=== PATIENT | female | born 1955 | race Caucasian/White ===

== ENCOUNTER 2017-11-13 20:42 | Inpatient (IN) | payer BC ==
[~2017-11-13] VITALS: Ht 154.9 cm; Wt 65.3 kg
[~2017-11-13 20:42] MED LIST: AMLO10TA4 PO; CLON1TAB PO; DIPH1TAB28 PO; DULO60CA45 PO; ESTR0.452 PO; GABA800T2 PO; HYDR-548 PO; LEVO500T2 PO; METH10TA2 PO; Nystatin PO; ONDA8TAB6 PO; PANT40TA4 PO; PROC-11 PO; TIZA6CAP PO; [UNRECOGNIZED DRUG - OTHER] PO
--- NOTE | 2017-11-13 20:45 | NUR ---
TO BED 4 [facility] PARAMEDICS C/O NONRADIATING CP X 1 08/29 WINDER HAND. PER EMS GAVE ASA 162 NITRO 2 SPRAY. PT CRYING, REQUESTING PAIN MEDICINE, NOTED PT BP 69/45. PLACE PT ON CARDIAC MONITORING, CONTINUOUS POX, O2@2L/NC. STARTED SL 20G TO R HAND, BLOOD DRAWN AND SENT TO LAB.
[2017-11-13] MEDS ORDERED: IV NS 0.9% 1,000 ML BAG IV ONE (21:00)
[2017-11-13 21:01] LABS: BASOPHILS # (AUTO) 0.1 /CMM (0.0-0.2); BASOPHILS % (AUTO) 0.7 % (0.0-2.0); EOSINOPHILS # (AUTO) 0.2 /CMM (0.0-0.7); EOSINOPHILS % (AUTO) 2.5 % (0.0-6.0); HEMATOCRIT 39 % (33-45); HEMOGLOBIN 13.6 g/dL (11.5-14.8); LYMPHOCYTES # (AUTO) 1.3 /CMM (0.8-4.8); LYMPHOCYTES % (AUTO) 18.5 % (20.0-44.0); MEAN CORPUSCULAR HEMOGLOBIN 32 PG (26.0-33.0); MEAN CORPUSCULAR HGB CONC 35 g/dl (31.0-36.0); MEAN CORPUSCULAR VOLUME 93 fL (82-100); MONOCYTES # (AUTO) 0.2 /CMM (0.1-1.30); NEUTROPHILS # (AUTO) 5.5 /CMM (1.8-8.9); NEUTROPHILS % (AUTO) 75.3 % (43.0-81.0); PLATELET COUNT (AUTO) 286 /CMM (150-450); RDW COEFFICIENT OF VARIATION 15.4 (11.5-15.0); RED BLOOD CELL COUNT(AUTO) 4.19 MIL/uL (4.0-5.2); WHITE BLOOD COUNT (AUTO) 7.3 K/uL (4.3-11.0)
[2017-11-13 21:21] LABS: CALCIUM, SERUM 9.1 mg/dL (8.5-10.1); CARBON DIOXIDE 24 mmol/L (21-32); CHLORIDE 104 mmol/L (98-107); CREATININE 1.4 mg/dL (0.6-1.3); GLUCOSE 111 mg/dL (74-106); INR 0.94 (0.87-1.13); POTASSIUM 5.2 mmol/L (3.5-5.1); SODIUM SERUM 137 mmol/L (136-145); UREA NITROGEN, BLOOD 23 mg/dL (7-18)
--- NOTE | 2017-11-13 21:27 | NUR ---
PT CAREGIVER AT BEDSIDE.
[2017-11-13 21:29] LABS: TROPONIN I < 0.017 ng/mL (0.00-0.056)
[2017-11-13] MEDS ORDERED: MORPHINE SULFATE INJ 4 MG/ML DISP.SYRIN ONE (22:24)
--- NOTE | 2017-11-13 22:28 | NUR ---
PT MEDICATED BY RN PER ER MD ORDER.
[2017-11-13] MEDS ORDERED: MORPHINE SULFATE INJ 2 MG/ML DISP.SYRIN IV ONE (22:30)
[2017-11-13] MEDS ORDERED: ASPIRIN 325 MG TABLET PO ONE (22:30)
--- NOTE | 2017-11-13 22:34 | NUR ---
CALLED NURSING SUP. FOR TELE BED
--- NOTE | 2017-11-13 22:46 | NUR ---
ER SPOKE TO MAGALI DECKER DNP REGARDING PT ADMISSION.
--- NOTE | 2017-11-13 23:03 | NUR ---
REPORT CALLED TO [facility]. WILL TRANSPORT PT VIA [facility]S PROTOCOL.
--- NOTE | 2017-11-13 23:15 | NUR ---
ORDER MANAGEMENT SPECIALISTEXIT BOOTH AGENT NOTES ADMITTED FROM ER THIS 62 Y.O. FEMALE PER ELADIA WITH CHIEF COMPLAINTS OF CHEST PAIN LABOR ARBITRATOR HEARING OFFICE.ALERT,ORIENTED X3,BREATHING REGULAR,NOT IN ANY FORM OF DISTRESS.SALINE LOCK RIGHT WRIST INTACT AND PATENT.PATIENT CLAIMED ITCHINESS ON PERINEAL AREA.NOTED SLIGHT REDNESS WITH SOME SMALL LESIONS ON GROIN AREA.CLEANSE AND KEPT DRY.PICTURE TAKEN WITH PATIENT CONSENT,ON CHART.AMBULATORY.CALL LIGHT IN REACH,NEEDS ANTICIPATED.
[2017-11-13] MEDS ORDERED: PROCHLORPERAZINE MALEATE 10 MG TABLET PO PRN (23:30)
[2017-11-13] MEDS ORDERED: LEVOFLOXACIN (500MG) 500 MG TABLET PO SCH (23:30)
[2017-11-13] MEDS ORDERED: DIPHENOXYLATE HCL/ATROP SULF 1 UDTAB TABLET PO PRN (23:30)
[2017-11-13] MEDS ORDERED: HYDROCODONE/APAP 10/325MG 1 EA TABLET PO PRN (23:30)
[2017-11-14] VITALS (10 sets, daily range): BP systolic 86–146; BP diastolic 48–82
[2017-11-14] MEDS ORDERED: ACETAMINOPHEN 325 MG TABLET PO PRN
[2017-11-14] MEDS ORDERED: LEVOFLOXACIN (500MG) 500 MG TABLET ONE (00:02)
[2017-11-14] MEDS ORDERED: ENOXAPARIN SODIUM 40 MG/0.4 ML DISP.SYRIN SQ ONE (00:02)
[2017-11-14] MEDS: IV NS 0.9% 1,000 ML IV PRN ×2 (00:09→12:57)
--- NOTE | 2017-11-14 00:09 | NUR ---
NET COORDINATOR NOTES STARTED ON NS 1LITER AT 75ML/HR RATE,INFUSING VIA IV PUMP ON THE RIGHT WRIST SALINE LOCK.
--- NOTE | 2017-11-14 00:20 | NUR ---
CONVENTION PLANNER NOTES STARTED ON LEVAQUIN 500MG PO ORDERED.
--- NOTE | 2017-11-14 00:21 | NUR ---
ANTENNA RIGGER NOTES STARTED ON LOVENOX 40MG SQ,GIVEN ON LEFT LOWER ABDOMEN ORDERED FOR DVT PROHYLAXIS
[2017-11-14] MEDS ORDERED: HYDROCODONE/APAP 10/325MG 1 EA TABLET ONE (01:42)
--- NOTE | 2017-11-14 01:44 | NUR ---
RESERVE OFFICER NOTES PAIN MANAGEMENT C/O LEFT CHEST PAIN 7/10 ON PAIN SCALE.MEDICATED WITH NORCO 10/325MG,1 TAB PO ORDERED
--- NOTE | 2017-11-14 05:00 | NUR ---
SPAR MACHINE OPERATOR HELPER NOTES STILL IN PAIN,910 0N PAIN SCALE,MAGALI DECKER NOTIFIED IF I CAN MEDICATE NOW WITH FIRST DOSE METHADONE SCHEDULED AT 0900 AND PER PATIENT REQUEST,AWAITING TO REPLY BACK
[2017-11-14] MEDS ORDERED: METHADONE HCL 10 MG TABLET ONE (05:09)
[2017-11-14] MEDS ORDERED: AMLODIPINE BESYLATE 10 MG TABLET ONE (05:09)
--- NOTE | 2017-11-14 05:10 | NUR ---
ESCALATOR SERVICE MECHANIC NOTES MAGALI DECKER ACNP REPLIED WITH NEW ORDER TO GIVE MORPHINE 4MG X ONE DOSE AND GIVE HER METHADONE 10MG PO WELL
[2017-11-14] MEDS: AMLODIPINE BESYLATE 10 MG TABLET PO SCH (05:12)
--- NOTE | 2017-11-14 05:13 | NUR ---
PROFESSOR OF FORESTRY NOTE PAIN MANAGEMENT MORPHINE 4MG IVP GIVEN ORDERED.ALSO METHADONE 10MG PO GIVEN FIRST DOSE
[2017-11-14] MEDS ORDERED: TIZANIDINE HCL 4 MG TABLET ONE (05:27)
[2017-11-14] MEDS ORDERED: MORPHINE SULFATE INJ 4 MG/ML DISP.SYRIN ONE (05:27)
[2017-11-14] MEDS: TIZANIDINE HCL 4 MG TABLET PO SCH ×3 (05:28→20:50)
[2017-11-14] MEDS ORDERED: MORPHINE SULFATE INJ 4 MG/ML DISP.SYRIN IV ONE (05:30)
--- NOTE | 2017-11-14 06:44 | NUR ---
NEUROSURGERY RESEARCH DIRECTOR NOTES SR 72 ON TELE MONITOR.CLAIMED SHE FEELS BETTER,PAIN SCALE DECREASED TO 5/10.IVF INFUSING.SITE PATENT ON RIGHT HAND.IN NO ACUTE DISTRESS.WILL ENDORSE TO DAY NURSE FOR IGLESIA.
--- NOTE | 2017-11-14 07:00 | NUR ---
RN NOTES: PATIENT RESTING IN BED. NONLABORED BREATHING NOTED ON ROOM AIR. PATIENT AOX3, NO SIGNS OF DISTRESS, PATIENT NOTED WITH SLURRED SPEECH WHEN TALKING, NO FOCAL IMPAIRMENT NOTED. PATIENT DENIES CHEST PAIN AT THE MOMENT. BED IN LOWEST LOCKED POSITION. CALL LIGHT WITHIN REACH. WILL CONTINUE TO MONITOR
[2017-11-14] MEDS ORDERED: ENOXAPARIN SODIUM 40 MG/0.4 ML DISP.SYRIN SQ SCH ×2 (07:52)
[2017-11-14] MEDS ORDERED: METHADONE HCL 10 MG TABLET PO SCH (09:00)
[2017-11-14] MEDS ORDERED: ESTROGENS,CONJUGATED (0.3 mg) 0.3 MG TABLET PO SCH (09:00)
[2017-11-14] MEDS: ASPIRIN EC 81 MG TABLET.DR PO SCH (10:09)
[2017-11-14] MEDS: PANTOPRAZOLE 40 MG TABLET.DR PO SCH ×2 (10:10→16:29)
[2017-11-14] MEDS: GABAPENTIN 400 MG CAPSULE PO SCH ×4 (10:10→21:48)
[2017-11-14] MEDS: NYSTATIN (PYXIS) 500,000 UNIT/5 ML ORAL.SUSP PO SCH ×3 (10:11→16:30)
[2017-11-14] MEDS: clonazePAM 1 MG TABLET PO SCH ×4 (10:30→20:49)
--- NOTE | 2017-11-14 11:03 | NUR ---
RN NOTES: PATIENT REFUSED KLONOPIN. BP REASSESSED AND NOTED TO BE 84/48. DISCUSSED WITH PATIENT BENEFITS AND RISKS, NO FACIAL GRIMACES NOTED, FACIAL EXPRESSIONS INDICATE CALMNESS, PATIENT DENIES DIZZINESS, NONLABORED BREATHING NOTED
--- NOTE | 2017-11-14 11:27 | NUR ---
RN NOTES ATTEMPTED ADFMINISTRATION OF ZOVIRAX, OINTMENT EARLIER X2,PATIENT REFUSING,GETTING COMBATIVE, TRYING TO PULL TUBES. PATIENT NOW RESTING IN BED, NO SIGNS OF DISTRESS, NONLABORED BREATHING ON ROOM AIR, FACIAL GRIMACES INDICATE CALMNESS
[2017-11-14] MEDS: DULOXETINE HCL 30 MG CAPSULE.DR PO SCH (11:37)
--- NOTE | 2017-11-14 14:10 | NUR ---
RN NOTES: PATIENT REFUSING GABAPENTIN, STATING THAT HER PAIN HAS DECREASED. BP ASSESSED AND NOTED TO BE 86/48, REASSESSED AGAIN AND NOTED TO BE 90/50 AFTER TRENDELENBURG . PATIENT AND CAREGIVER STATING THAT THIS BP READING IS NORMAL FOR HER AT HOME. PATIENT DENIES DIZZINESS, NO SOB ON ROOM AIR. ON IV HYDRATION PER ORDERS
--- NOTE | 2017-11-14 14:28 | NUR ---
RN NOTES: PATIENT NOTED WITH SLIGHT LEFT EYE DROOPINESS, PATIENT PERRLA, DENIES VISUAL CHANGES, NO FOCAL IMPAIRMENT, SLURRED SPEECH IS STILL NOTED. DR CHAMBERS AWARE
--- NOTE | 2017-11-14 18:40 | NUR ---
RN NOTES: PATIENT RESTING IN BED. NONLABORED BREATHING NOTED ON ROOM AIR. PATIENT AOX3, NO SIGNS OF DISTRESS, PATIENT NOTED WITH SLURRED SPEECH WHEN TALKING, NO FOCAL IMPAIRMENT NOTED. PATIENT DENIES CHEST PAIN AT THE MOMENT PATIENT SINUS ON TELE MONITOR. PATIENT BED IN LOWEST LOCKED POSITION. CALL LIGHT WITHIN REACH. WILL ENDORSE TO NEXT SHIFT
--- NOTE | 2017-11-14 18:41 | NUR ---
Met with patient and caregiver Nikky at the bedside. Patient is alert and pleasant. She lives alone in a 2 story home in [place], she has caregiver 24hrs caregiver. Patient is ambulatory , requires assistance with adl's. Has no DME , she is currently on home PT private pay with PT Jonathan [phone]. Nikky (caregiver) [phone] will provide ride home once patient is discharge. Addendum: 11/14/17 at 1842 by OLGA GARDINER RN Amended: Links added.
--- NOTE | 2017-11-14 18:41 | NUR ---
Met with patient and caregiver Nikky at the bedside. Patient is alert and pleasant. She lives alone in a 2 story home in [place],she has caregiver 24hrs caregiver. Patient is ambulatory , requires assistance with adl's. Has no DME , she is currently on home PT private pay with PT Jonathan [phone]. Nikky (caregiver) [phone] will provide ride home once patient is discharge. Addendum: 11/14/17 at 1842 by OLGA GARDINER RN Amended: Links added.
--- NOTE | 2017-11-14 19:25 | NUR ---
RN NOTES: PATIENT RESTING IN BED. NONLABORED BREATHING NOTED ON ROOM AIR. PATIENT AOX3, NO SIGNS OF DISTRESS, PATIENT NOTED WITH SLURRED SPEECH WHEN TALKING, NO FOCAL IMPAIRMENT NOTED. PATIENT DENIES CHEST PAIN AT THE MOMENT. BED IN LOWEST LOCKED POSITION. CALL LIGHT WITHIN REACH. ENDORSED TO NEXT SHIFT
--- NOTE | 2017-11-14 19:30 | NUR ---
PATROL MOTHER NOTES RECEIVED ON BED A/O X3-4,BREATHING REGULAR,NOT IN ANY FORM OF DISTRESS.PRESENT IVF INFUSING WELL ON RIGHT WRIST,SITE PATENT.INSTRUCTED NPO POST [place] FOR STRESS TEST TOMORROW.SR 96 ON TELE MONITOR.VISITOR AT BEDSIDE.CALL LIGHT IN REACH,NEEDS ANTICIPATED.
[2017-11-14] MEDS: METHADONE HCL 10 MG TABLET PO SCH (21:47)
--- NOTE | 2017-11-14 21:47 | NUR ---
GEAR GENERATOR SET UP OPERATOR NOTES BP 147/82,PULSE 87,DUE METHADONE 10MG PO AND NEURONTIN 800MG PO ADMINISTERED,PAIN SCALE OF 8-9/10 GENERALIZED PAIN.
[2017-11-14 23:06] LABS: BASOPHILS % (AUTO) 0.7 % (0.0-2.0); EOSINOPHILS # (AUTO) 0.3 /CMM (0.0-0.7); EOSINOPHILS % (AUTO) 5.2 % (0.0-6.0); HEMATOCRIT 39 % (33-45); HEMOGLOBIN 13.2 g/dL (11.5-14.8); LYMPHOCYTES # (AUTO) 1.8 /CMM (0.8-4.8); LYMPHOCYTES % (AUTO) 35.5 % (20.0-44.0); MEAN CORPUSCULAR HEMOGLOBIN 32 PG (26.0-33.0); MEAN CORPUSCULAR HGB CONC 34 g/dl (31.0-36.0); MEAN CORPUSCULAR VOLUME 95 fL (82-100); MONOCYTES # (AUTO) 0.3 /CMM (0.1-1.30); MONOCYTES % (AUTO) 6.7 % (2.0-12.0); NEUTROPHILS # (AUTO) 2.7 /CMM (1.8-8.9); NEUTROPHILS % (AUTO) 51.9 % (43.0-81.0); PLATELET COUNT (AUTO) 220 /CMM (150-450); RDW COEFFICIENT OF VARIATION 16.1 (11.5-15.0); RED BLOOD CELL COUNT(AUTO) 4.08 MIL/uL (4.0-5.2); WHITE BLOOD COUNT (AUTO) 5.2 K/uL (4.3-11.0)
[2017-11-14 23:25] LABS: ALBUMIN 3.5 g/dL (3.4-5.0); BILIRUBIN,TOTAL 0.3 mg/dL (0.2-1.0); CALCIUM, SERUM 8.8 mg/dL (8.5-10.1); CREATININE 1.1 mg/dL (0.6-1.3); MAGNESIUM 1.8 mg/dL (1.8-2.4); PHOSPHORUS 3.6 mg/dL (2.5-4.9); POTASSIUM 4.3 mmol/L (3.5-5.1); TOTAL PROTEIN, SERUM 6.9 g/dL (6.4-8.2)
[2017-11-14] MEDS ORDERED: LEVOFLOXACIN (500MG) 500 MG TABLET PO ONE (23:30)
[2017-11-15] VITALS: BP 146/77
--- NOTE | 2017-11-15 02:00 | NUR ---
PROBATION AND PATROL AGENT NOTES NO SIGNIFICANT CHANGE IN STATUS.KEPT NPO FOR STRESS TEST TODAY BY DR PERALES.IVF INFUSING,SITE REMAINS PATENT RIGHT HAND.IN NO ACUTE DISTRESS.WILL ENDORSE TO DAY NURSE FOR IGLESIA.
[2017-11-15 04:00] VITALS: BP 176/75
[2017-11-15] MEDS: TIZANIDINE HCL 4 MG TABLET PO SCH ×2 (05:00→13:35)
[2017-11-15] MEDS: IV NS 0.9% 1,000 ML IV PRN (05:32)
--- NOTE | 2017-11-15 07:25 | NUR ---
RN NOTES: PATIENT RESTING IN BED. NONLABORED BREATHING NOTED ON ROOM AIR. NO SOB NOTED. IV SITE ON RIGHT HAND PATENT AND INTACT. BED IN LOWEST LOCKED POSITION. CALL LIGHT WITHIN REACH. PATIENT SINUS ON TELE.PATIENT STATES THAT SHE HAS AN 8/10 CHRONIC PAIN IN HER LOWER BACK AND REQUESTS WARM PACKS. PATIENT GIVEN WARM PACKS. CURRENTLY NPO FOR STRESS TEST. WILL CONTINUE TO MONITOR
--- NOTE | 2017-11-15 07:25 | NUR ---
RN NOTES: PATIENT RESTING IN BED. NONLABORED BREATHING NOTED ON ROOM AIR. NO SOB NOTED. IV SITE ON RIGHT HAND PATENT AND INTACT. BED IN LOWEST LOCKED POSITION. CALL LIGHT WITHIN REACH. PATIENT STATES THAT SHE HAS AN 8/10 CHRONIC PAIN IN HER LOWER BACK AND REQUESTS WARM PACKS. PATIENT GIVEN WARM PACKS. CURRENTLY NPO FOR STRESS TEST. WILL CONTINUE TO MONITOR
[2017-11-15 07:39] LABS: BASOPHILS % (AUTO) 0.7 % (0.0-2.0); EOSINOPHILS # (AUTO) 0.3 /CMM (0.0-0.7); EOSINOPHILS % (AUTO) 5.6 % (0.0-6.0); HEMATOCRIT 40 % (33-45); HEMOGLOBIN 13.3 g/dL (11.5-14.8); LYMPHOCYTES % (AUTO) 38.8 % (20.0-44.0); MEAN CORPUSCULAR HEMOGLOBIN 32 PG (26.0-33.0); MEAN CORPUSCULAR HGB CONC 34 g/dl (31.0-36.0); MEAN CORPUSCULAR VOLUME 95 fL (82-100); MONOCYTES # (AUTO) 0.3 /CMM (0.1-1.30); MONOCYTES % (AUTO) 5.3 % (2.0-12.0); NEUTROPHILS # (AUTO) 2.5 /CMM (1.8-8.9); NEUTROPHILS % (AUTO) 49.6 % (43.0-81.0); PLATELET COUNT (AUTO) 247 /CMM (150-450); RDW COEFFICIENT OF VARIATION 16.6 (11.5-15.0); RED BLOOD CELL COUNT(AUTO) 4.17 MIL/uL (4.0-5.2); WHITE BLOOD COUNT (AUTO) 5.1 K/uL (4.3-11.0)
[2017-11-15 07:56] LABS: TROPONIN I < 0.017 ng/mL (0.00-0.056)
[2017-11-15 08:00] VITALS: BP 169/89
[2017-11-15 08:02] LABS: ALANINE AMINOTRANSFERASE 16 U/L (12-78); ALBUMIN 3.5 g/dL (3.4-5.0); ALKALINE PHOSPHATASE 78 U/L (46-116); ASPARTATE AMINOTRANSFERASE 9 U/L (15-37); BILIRUBIN,TOTAL 0.2 mg/dL (0.2-1.0); CALCIUM, SERUM 9.2 mg/dL (8.5-10.1); CARBON DIOXIDE 29 mmol/L (21-32); CHLORIDE 107 mmol/L (98-107); CREATININE 1.1 mg/dL (0.6-1.3); GLUCOSE 80 mg/dL (74-106); MAGNESIUM 1.6 mg/dL (1.8-2.4); PHOSPHORUS 3.6 mg/dL (2.5-4.9); POTASSIUM 4.3 mmol/L (3.5-5.1); SODIUM SERUM 144 mmol/L (136-145); TOTAL PROTEIN, SERUM 7.1 g/dL (6.4-8.2); UREA NITROGEN, BLOOD 17 mg/dL (7-18)
[2017-11-15] MEDS ORDERED: REGADENOSON 0.4 MG/5 ML DISP.SYRIN IVP ONE (09:00)
[2017-11-15] MEDS ORDERED: ATORVASTATIN 40 MG TABLET PO SCH (09:00)
[2017-11-15] MEDS ORDERED: ESTROGENS,CONJUGATED (0.3 mg) 0.3 MG TABLET PO SCH (09:00)
[2017-11-15 09:15] VITALS: BP 163/99
[2017-11-15] MEDS: METHADONE HCL 10 MG TABLET PO SCH ×2 (09:22→12:44)
[2017-11-15] MEDS: GABAPENTIN 400 MG CAPSULE PO SCH ×2 (09:22→12:43)
[2017-11-15] MEDS: clonazePAM 1 MG TABLET PO SCH ×2 (09:23→12:44)
[2017-11-15] MEDS: ASPIRIN EC 81 MG TABLET.DR PO SCH (09:23)
[2017-11-15] MEDS: PANTOPRAZOLE 40 MG TABLET.DR PO SCH (09:23)
[2017-11-15] MEDS: NYSTATIN (PYXIS) 500,000 UNIT/5 ML ORAL.SUSP PO SCH ×2 (09:25→12:46)
--- NOTE | 2017-11-15 09:45 | NUR ---
RN NOTES: PATIENT CAME BACK FROM STRESS TEST. NONLABORED BREATHING ON ROOM AIR. PATIENT ABLE DENIES SOB. CURRENTLY EATING BREAKFAST
[2017-11-15 10:40] VITALS: BP 142/86
[2017-11-15] MEDS: DULOXETINE HCL 30 MG CAPSULE.DR PO SCH (10:40)
[2017-11-15] MEDS: AMLODIPINE BESYLATE 10 MG TABLET PO SCH (12:00)
[2017-11-15] MEDS: Magnesium 1GM/D5W 100ML PREMIX 100 ML IV SCH ×2 (12:48→14:26)
--- NOTE | 2017-11-15 13:28 | NUR ---
RN NOTES: PATIENT REFUSED BLOOD PERSSURE MEDICINE, AMLODIPINE. PATIENT STATES THAT SHE DOES NOT WANT HER BLOOD PRESSURE TO DROP. BENEFITS AND RISKS EXPLAINED AT LENGTH MULTIPLE TIMES. PATIENT STILL REFUSING
[2017-11-15 16:05] VITALS: BP_SYST 120; BP_SYST 169; BP_DIAS 70; BP_DIAS 89
--- NOTE | 2017-11-15 17:00 | NUR ---
RN NOTES: PATIENT DISCHARGED HOME PER MD ORDERS. PATIENT STABLE. NONLABORED BREATHING NOTED ON ROOM AIR. PATIENT AMBULATING WITHOUT ANY IMPAIRMENT. PATIENT DENIES VISUAL DIFFICULTIES, DENIES HEADACHES. DENIES PAIN BEFORE DISCHARGE. IV LINE REMOVED. DISCUSSED WITH PATIENT AT LENGTH EXISTCARE INSTRUCTIONS, MEDICATIONS, WELL DIET AND WHEN TO CALL 911. PATIENT VERBALIZED UNDERSTANDING, CAREGIVER ALSO EDUCATED. PATIENT REFUSED VACCINES, SKIN PICTURES, BENEFITS AND RISKS EXPLAINED AT LENGTH, PATIENT STILL REFUSED. MAGNESIUM REPLACED PRIOR TO DISCHARGE, ALL VALUABLES RETURNED TO PATIENT, PATIENT LEFT WITH CAREGIVER JORGE VIA PRIVATE CAR
[2017-11-15] MEDS ORDERED: LEVOFLOXACIN (250MG) 250 MG TABLET PO SCH (21:00)
[2017-11-16] MEDS ORDERED: LEVOFLOXACIN 750 MG /D5W 150ML 150 ML IV ONE (17:59)
[2017-11-16] MEDS ORDERED: GABA-534 PO (18:09)
[2017-11-16] MEDS ORDERED: ONDA8TAB9 PO (18:09)
[2017-11-16] MEDS ORDERED: TIZA4TAB4 PO (18:09)
[2017-11-16] MEDS ORDERED: ERGO500014 PO (18:09)
[2017-11-16] MEDS ORDERED: PREG150C PO (18:09)
[2017-11-16] MEDS ORDERED: DOXE6TAB3 PO (18:09)
[2017-11-16] MEDS ORDERED: LETR2.5T PO (18:09)
[2017-11-16] MEDS ORDERED: CYCL15CA PO (18:09)
[2017-11-16] MEDS ORDERED: TRAM50TA2 PO (18:09)
[2017-11-16] MEDS ORDERED: FLUT16SP16 NS (18:09)
[2017-11-16] MEDS ORDERED: METH-406 PO (18:09)
[2017-11-16] MEDS ORDERED: MELO5CAP PO (18:09)
[2017-11-16] MEDS ORDERED: TRAZ-144 PO (18:09)
[2017-11-18] MEDS ORDERED: AMLO5TAB2 PO (13:44)
== END 2017-11-15 17:01 | disposition home or self-care (01) | DRG 313 ==
LOC: ER 20:44 → TELE 23:06 → MED 11-15 08:12
PROVIDERS: ADMIT Nurse Practitioner Acute Care; ATTEND Nurse Practitioner Acute Care
DX: R07.89 Other chest pain (principal); N17.0 Acute kidney failure with tubular necrosis; F11.20 Opioid dependence, uncomplicated; E87.5 Hyperkalemia; J44.9 Chronic obstructive pulmonary disease, unspecified; I10 Essential (primary) hypertension; Z88.0 Allergy status to penicillin; Z79.899 Other long term (current) drug therapy; Z85.3 Personal history of malignant neoplasm of breast; M19.90 Unspecified osteoarthritis, unspecified site; G89.4 Chronic pain syndrome; F32.9 Major depressive disorder, single episode, unspecified; I70.0 Atherosclerosis of aorta
CPT/HCPCS: 36415; 71045-TC; 80048-TC; 80053-TC; 80061-TC; 83735-TC; 84100-TC; 84484-TC; 85025-TC; 85730-TC; 87081-TC; 93307-TC; A4606; A9502; J1650; J1956; J2270; J2785; J3475; J7030; J7040; J7050; Q0164; Z7610

== ENCOUNTER 2017-11-16 14:56 | Inpatient (IN) | payer BC ==
[~2017-11-16] VITALS: Ht 165.1 cm; Wt 66.2 kg
[~2017-11-16 14:56] MED LIST changes: -LEVO500T2 PO
[2017-11-16 15:20] LABS: BASOPHILS # (AUTO) 0.1 /CMM (0.0-0.2); EOSINOPHILS # (AUTO) 0.3 /CMM (0.0-0.7); EOSINOPHILS % (AUTO) 2.3 % (0.0-6.0); HEMATOCRIT 33 % (33-45); HEMOGLOBIN 11.4 g/dL (11.5-14.8); LYMPHOCYTES # (AUTO) 1.9 /CMM (0.8-4.8); LYMPHOCYTES % (AUTO) 15.4 % (20.0-44.0); MEAN CORPUSCULAR HEMOGLOBIN 33 PG (26.0-33.0); MEAN CORPUSCULAR HGB CONC 35 g/dl (31.0-36.0); MEAN CORPUSCULAR VOLUME 93 fL (82-100); MONOCYTES # (AUTO) 0.5 /CMM (0.1-1.30); MONOCYTES % (AUTO) 3.8 % (2.0-12.0); NEUTROPHILS # (AUTO) 9.3 /CMM (1.8-8.9); NEUTROPHILS % (AUTO) 77.5 % (43.0-81.0); PLATELET COUNT (AUTO) 228 /CMM (150-450); RDW COEFFICIENT OF VARIATION 15.1 (11.5-15.0); RED BLOOD CELL COUNT(AUTO) 3.51 MIL/uL (4.0-5.2); WHITE BLOOD COUNT (AUTO) 12.1 K/uL (4.3-11.0)
[2017-11-16] MEDS ORDERED: NALOXONE HCL 0.4 MG/ML AMPUL ONE (15:23)
[2017-11-16 15:30] LABS: CALCIUM, SERUM 8.4 mg/dL (8.5-10.1); CARBON DIOXIDE 28 mmol/L (21-32); CHLORIDE 104 mmol/L (98-107); CREATININE 1.4 mg/dL (0.6-1.3); GLUCOSE 116 mg/dL (74-106); POTASSIUM 4.1 mmol/L (3.5-5.1); SODIUM SERUM 136 mmol/L (136-145); UREA NITROGEN, BLOOD 21 mg/dL (7-18)
[2017-11-16] MEDS ORDERED: IV NS 0.9% 500 ML BAG IV ONE (15:30)
[2017-11-16] MEDS ORDERED: NALOXONE HCL 0.4 MG/ML AMPUL IV ONE ×2 (15:30→17:00)
[2017-11-16 15:31] LABS: ALCOHOL, BLOOD < 3 mg/dL (0-0)
[2017-11-16] MEDS ORDERED: NALOXONE PREFILLED SYRINGE 2 MG/2 ML SYRINGE ONE (16:35)
[2017-11-16] MEDS ORDERED: IV NS 0.9% 1,000 ML BAG IV ONE (17:00)
[2017-11-16] MEDS ORDERED: LEVOFLOXACIN 750 MG /D5W 150ML PIGGYBACK IV ONE (18:00)
[2017-11-16] MEDS ORDERED: TIZA4TAB4 PO (18:09)
[2017-11-16] MEDS ORDERED: FLUT16SP16 NS (18:09)
[2017-11-16] MEDS ORDERED: METH-406 PO (18:09)
[2017-11-16] MEDS ORDERED: CYCL15CA PO (18:09)
[2017-11-16] MEDS ORDERED: TRAZ-144 PO (18:09)
[2017-11-16] MEDS ORDERED: DOXE6TAB3 PO (18:09)
[2017-11-16] MEDS ORDERED: LETR2.5T PO (18:09)
[2017-11-16] MEDS ORDERED: MELO5CAP PO (18:09)
[2017-11-16] MEDS ORDERED: PREG150C PO (18:09)
[2017-11-16] MEDS ORDERED: GABA-534 PO (18:09)
[2017-11-16] MEDS ORDERED: ONDA8TAB9 PO (18:09)
[2017-11-16] MEDS ORDERED: TRAM50TA2 PO (18:09)
[2017-11-16] MEDS ORDERED: ERGO500014 PO (18:09)
[2017-11-16] MEDS ORDERED: Z GUARD REMEDY 2 OZ OINT TP PRN (18:30)
[2017-11-16] MEDS ORDERED: FLUTICASONE PROPIONATE 16 GM BOTTLE NS PRN (18:30)
[2017-11-16] MEDS ORDERED: MAG HYDROX/AL HYDROX/SIMETH 30 ML UDC PO PRN (18:30)
[2017-11-16] MEDS ORDERED: ZOLPIDEM TARTRATE 5 MG TABLET PO PRN (18:30)
[2017-11-16] MEDS ORDERED: TRAMADOL HCL 50 MG TABLET PO PRN (18:30)
[2017-11-16] MEDS ORDERED: MAGNESIUM HYDROXIDE 30 ML UDC PO PRN (18:30)
[2017-11-16] MEDS ORDERED: ONDANSETRON HCL/PF 4 MG/2 ML VIAL IVP PRN (18:30)
[2017-11-16 20:00] VITALS: BP 110/50
[2017-11-16] MEDS ORDERED: LEVOFLOXACIN 500 MG /D5W 100ML 500 MG in PREMIX 1 EA IV SCH (20:00)
[2017-11-16] MEDS: IV NS 0.9% 1,000 ML IV PRN (21:49)
[2017-11-16] MEDS: ACETAMINOPHEN 325 MG TABLET PO PRN (22:52)
[2017-11-17 06:36] LABS: BASOPHILS % (AUTO) 0.3 % (0.0-2.0); EOSINOPHILS # (AUTO) 0.3 /CMM (0.0-0.7); EOSINOPHILS % (AUTO) 4.3 % (0.0-6.0); HEMATOCRIT 33 % (33-45); HEMOGLOBIN 11.3 g/dL (11.5-14.8); LYMPHOCYTES # (AUTO) 1.4 /CMM (0.8-4.8); LYMPHOCYTES % (AUTO) 20.8 % (20.0-44.0); MEAN CORPUSCULAR HEMOGLOBIN 32 PG (26.0-33.0); MEAN CORPUSCULAR HGB CONC 34 g/dl (31.0-36.0); MEAN CORPUSCULAR VOLUME 94 fL (82-100); MONOCYTES # (AUTO) 0.3 /CMM (0.1-1.30); MONOCYTES % (AUTO) 4.4 % (2.0-12.0); NEUTROPHILS # (AUTO) 4.6 /CMM (1.8-8.9); NEUTROPHILS % (AUTO) 70.2 % (43.0-81.0); PLATELET COUNT (AUTO) 194 /CMM (150-450); RDW COEFFICIENT OF VARIATION 15.4 (11.5-15.0); RED BLOOD CELL COUNT(AUTO) 3.53 MIL/uL (4.0-5.2); WHITE BLOOD COUNT (AUTO) 6.6 K/uL (4.3-11.0)
[2017-11-17 07:52] LABS: POTASSIUM 4.2 mmol/L (3.5-5.1)
[2017-11-17 08:00] VITALS: BP 132/61
[2017-11-17 09:39] LABS: CALCIUM, SERUM 7.9 mg/dL (8.5-10.1); CREATININE 1.1 mg/dL (0.6-1.3)
[2017-11-17 09:40] LABS: MAGNESIUM 1.8 mg/dL (1.8-2.4); PHOSPHORUS 2.4 mg/dL (2.5-4.9)
[2017-11-17] MEDS ORDERED: K PHOS NEUTRAL 250 MG TABLET PO ONE (11:30)
[2017-11-17] MEDS: LETROZOLE 2.5 MG TABLET PO SCH (13:04)
[2017-11-17] MEDS: HYDROCODONE/APAP 5/325MG 1 EACH TABLET PO PRN ×3 (13:05→23:22)
[2017-11-17 16:00] VITALS: BP 162/92
[2017-11-17] MEDS ORDERED: GABAPENTIN 300 MG CAPSULE PO SCH (18:00)
[2017-11-17 20:00] VITALS: BP 161/99
[2017-11-17] MEDS ORDERED: LEVOFLOXACIN 250 MG /D5W 50 ML 250 MG in PREMIX 1 EA IV SCH (20:00)
[2017-11-18] VITALS (7 sets, daily range): BP systolic 102–183; BP diastolic 64–90
[2017-11-18] MEDS: ACETAMINOPHEN 325 MG TABLET PO PRN (00:58)
[2017-11-18] MEDS: IV NS 0.9% 1,000 ML IV PRN (04:16)
[2017-11-18] MEDS ORDERED: AMLODIPINE BESYLATE 10 MG TABLET ONE (05:43)
[2017-11-18] MEDS ORDERED: AMLODIPINE BESYLATE 10 MG TABLET PO ONE (06:00)
[2017-11-18 07:08] LABS: CALCIUM, SERUM 8.5 mg/dL (8.5-10.1); CREATININE 0.9 mg/dL (0.6-1.3); POTASSIUM 4.1 mmol/L (3.5-5.1)
[2017-11-18] MEDS: HYDROCODONE/APAP 5/325MG 1 EACH TABLET PO PRN (08:05)
[2017-11-18] MEDS: LETROZOLE 2.5 MG TABLET PO SCH (09:03)
[2017-11-18] MEDS ORDERED: CLONIDINE HCL 0.1 MG TABLET PO STA ×2 (09:43→09:53)
[2017-11-18] MEDS ORDERED: METHADONE HCL 10 MG TABLET PO STA (09:53)
[2017-11-18] MEDS ORDERED: CLONIDINE HCL 0.1 MG TABLET PO PRN (10:00)
[2017-11-18] MEDS ORDERED: AMLO5TAB2 PO (13:44)
[2017-11-18] MEDS ORDERED: AMLODIPINE BESYLATE 5 MG TABLET PO SCH (14:00)
[2017-11-18] MEDS ORDERED: ERGOCALCIFEROL (VITAMIN D 2) 50,000 UNIT CAPSULE PO SCH (18:30)
== END 2017-11-18 15:57 | disposition home or self-care (01) | DRG 917 ==
LOC: ER 14:56 → TELE 18:10 → MED 18:46
PROVIDERS: ADMIT Internal Medicine; ATTEND Internal Medicine
DX: T40.601A Poisoning by unspecified narcotics, accidental (unintentional), initial encounter (principal); N17.0 Acute kidney failure with tubular necrosis; G92 Toxic encephalopathy; F11.20 Opioid dependence, uncomplicated; F17.210 Nicotine dependence, cigarettes, uncomplicated; F32.9 Major depressive disorder, single episode, unspecified; G89.4 Chronic pain syndrome; I10 Essential (primary) hypertension; M19.90 Unspecified osteoarthritis, unspecified site; J44.9 Chronic obstructive pulmonary disease, unspecified; Z85.3 Personal history of malignant neoplasm of breast; F41.9 Anxiety disorder, unspecified; Y92.009 Unspecified place in unspecified non-institutional (private) residence as the place of occurrence of the external cause; Z88.0 Allergy status to penicillin
CPT/HCPCS: 36415; 70450-TC; 71045-TC; 80048-TC; 83735-TC; 84100-TC; 85025-TC; 87081-TC; A4216; G0480; J1956; J2310; J7030; J7040

== ENCOUNTER 2018-03-29 21:08 | Emergency (ER) | payer MEDICARE, BC ==
[~2018-03-29] VITALS: Ht 154.9 cm; Wt 52.6 kg
[~2018-03-29 21:08] MED LIST changes: -AMLO10TA4 PO; +AMLO5TAB7 PO; +CYCL15CA PO; -DIPH1TAB28 PO; +DOXE6TAB3 PO; +ERGO500014 PO; -ESTR0.452 PO; +FLUT16SP16 NS; +GABA-534 PO; -GABA800T2 PO; -HYDR-548 PO; +LETR2.5T PO; +MELO5CAP PO; +METH-406 PO; -METH10TA2 PO; -ONDA8TAB6 PO; +ONDA8TAB9 PO; -PANT40TA4 PO; +PREG150C PO; -PROC-11 PO; +TIZA4TAB4 PO; -TIZA6CAP PO; +TRAM50TA2 PO; +TRAZ-182 PO; -[UNRECOGNIZED DRUG - OTHER] PO
--- NOTE | 2018-03-29 21:10 | NUR ---
[id number]; ABD PAIN, NAD NOTED, VSS, RESP EVEN AND UNLABORED, PT WAS PUT ON MONITOR, WAITING FOR MD H[place].
--- NOTE | 2018-03-29 21:53 | NUR ---
DAUGHTER CALLED AND LEFT PHONE NUMBER KRISTYN [phone]
[2018-03-29] MEDS ORDERED: IV NS 0.9% 500 ML BAG IV ONE (22:00)
[2018-03-29] MEDS ORDERED: ONDANSETRON HCL/PF 4 MG/2 ML VIAL IVP ONE (22:00)
[2018-03-29] MEDS ORDERED: ONDANSETRON HCL/PF 4 MG/2 ML VIAL ONE (22:02)
[2018-03-29 22:32] LABS: INR 0.96 (0.87-1.13)
[2018-03-29 22:36] LABS: BASOPHILS % (AUTO) 0.6 % (0.0-2.0); EOSINOPHILS % (AUTO) 1.6 % (0.0-6.0); HEMATOCRIT 36 % (33-45); HEMOGLOBIN 12.3 g/dL (11.5-14.8); LYMPHOCYTES # (AUTO) 1.4 /CMM (0.8-4.8); LYMPHOCYTES % (AUTO) 17.9 % (20.0-44.0); MEAN CORPUSCULAR HGB CONC 34 g/dl (31.0-36.0); MEAN CORPUSCULAR VOLUME 93 fL (82-100); MONOCYTES # (AUTO) 0.3 /CMM (0.1-1.30); MONOCYTES % (AUTO) 3.3 % (2.0-12.0); NEUTROPHILS % (AUTO) 76.6 % (43.0-81.0); PLATELET COUNT (AUTO) 336 /CMM (150-450); RDW COEFFICIENT OF VARIATION 16.9 (11.5-15.0); RED BLOOD CELL COUNT(AUTO) 3.86 MIL/uL (4.0-5.2); WHITE BLOOD COUNT (AUTO) 7.8 K/uL (4.3-11.0)
[2018-03-29 22:38] LABS: TROPONIN I < 0.017 ng/mL (0.00-0.056)
[2018-03-29 22:39] LABS: CALCIUM, SERUM 8.3 mg/dL (8.5-10.1); CARBON DIOXIDE 26 mmol/L (21-32); CHLORIDE 102 mmol/L (98-107); CREATININE 1.1 mg/dL (0.6-1.3); GLUCOSE 132 mg/dL (74-106); POTASSIUM 4.3 mmol/L (3.5-5.1); SODIUM SERUM 137 mmol/L (136-145); UREA NITROGEN, BLOOD 11 mg/dL (7-18)
[2018-03-29 22:43] LABS: ALANINE AMINOTRANSFERASE 13 U/L (12-78); ALBUMIN 2.9 g/dL (3.4-5.0); ALKALINE PHOSPHATASE 62 U/L (46-116); ASPARTATE AMINOTRANSFERASE 9 U/L (15-37); BILIRUBIN,TOTAL 0.7 mg/dL (0.2-1.0); LIPASE 59 U/L (73-393); TOTAL PROTEIN, SERUM 5.9 g/dL (6.4-8.2)
[2018-03-29 23:00] LABS: APPEARANCE,URINE SL CLOUDY (CLEAR); BILIRUBIN,URINE NEGATIVE (NEGATIVE); BLOOD, URINE NEGATIVE Ery/uL (NEGATIVE); COLOR,URINE YELLOW (YELLOW); KETONES,URINE TRACE (NEGATIVE); LEUKOCYTE ESTERASE ,URINE 1+ (NEGATIVE); NITRITE, URINE NEGATIVE (NEGATIVE); PH,URINE 5.5 (5.0-8.0); PROTEIN,URINE NEGATIVE (NEGATIVE); UGLUCOSE NEGATIVE (NEGATIVE); UROBILINOGEN,URINE 0.2 EU/dL (0.2)
[2018-03-29 23:06] LABS: BACTERIA,URINE Few /HPF (None Seen); SQUAMOUS EPITHELIAL CELL,UR Moderate /HPF (None Seen)
[2018-03-29 23:28] VITALS: BP 117/80
--- NOTE | 2018-03-29 23:28 | NUR ---
CALLED [facility] FOR TRANSPORT ETA OF 0130 WAS GIVEN. TRIP#[id number]
--- NOTE | 2018-03-30 01:02 | NUR ---
PT FOUND OWN TRANSPORTATION HOME. PT OK TO BE DISCHARGED HOME. Patient discharged to home in stable condition. Written and verbal after care instructions given. Patient verbalizes understanding of instruction.Patient is awake and alert to self, day, and place. PT ambulatory with a steady gait. IV removed. Catheter intact and site benign. Pressure and 4x4 applied to site. No bleeding noted.
== END 2018-03-30 01:06 | disposition home or self-care (01) ==
LOC: ER 21:09
DX: N39.0 Urinary tract infection, site not specified (principal); G89.29 Other chronic pain; Z76.5 Malingerer [conscious simulation]; F11.20 Opioid dependence, uncomplicated; I10 Essential (primary) hypertension; M19.90 Unspecified osteoarthritis, unspecified site; Z85.3 Personal history of malignant neoplasm of breast; Z88.0 Allergy status to penicillin
CPT/HCPCS: 36415; 80048-TC; 80076-TC; 80305; 81000-TC; 83690-TC; 84484-TC; 85025-TC; 85730-TC; 87086-TC; A4606; J2405; J7040; Z7610

== ENCOUNTER 2018-06-17 20:18 | Emergency (ER) | payer MEDICARE, BC ==
[~2018-06-17 20:18] MED LIST changes: +AMLO5TAB2 PO; -AMLO5TAB7 PO
--- NOTE | 2018-06-17 20:21 | NUR ---
CALLED PT IN [place], NO RESPONSE
--- NOTE | 2018-06-17 20:41 | NUR ---
CALLED PT IN [place], NO RESPONSE
--- NOTE | 2018-06-17 21:21 | NUR ---
CALLED PT IN [place], NO RESPONSE
--- NOTE | 2018-06-17 21:48 | NUR ---
CALLED PT IN [place], NO RESPONSE
== END 2018-06-17 21:49 | disposition left against medical advice (07) ==
LOC: ER 20:19
DX: Z53.21 Procedure and treatment not carried out due to patient leaving prior to being seen by health care provider (principal)

== ENCOUNTER 2023-12-01 19:46 | Inpatient (IN) | payer BC, MEDICARE, OTHER ==
[~2023-12-01] VITALS: Ht 154.9 cm; Wt 49.9 kg
[~2023-12-01 19:46] MED LIST changes: +AMLO-212 PO; -AMLO5TAB2 PO; -TIZA4TAB4 PO; +TIZA4TAB5 PO
[2023-12-01] MEDS ORDERED: IPRATROPIUM NEB FS 0.5 MG/2.5 ML AMPUL.NEB ONE (19:57)
[2023-12-01] MEDS ORDERED: ALBUTEROL FS 2.5 MG/3 ML VIAL.NEB ONE (19:57)
[2023-12-01 19:59] VITALS: O2SAT 97
[2023-12-01] MEDS: ALBUTEROL FS 2.5 MG/3 ML VIAL.NEB NEB STA (19:59)
[2023-12-01] MEDS: IPRATROPIUM NEB FS 0.5 MG/2.5 ML AMPUL.NEB NEB STA (19:59)
[2023-12-01 20:33] LABS: CALCIUM, SERUM 9.2 mg/dL (8.5-10.1); CARBON DIOXIDE 25 mmol/L (21-32); CHLORIDE 102 mmol/L (98-107); CREATININE 0.7 mg/dL (0.6-1.3); GLUCOSE 94 mg/dL (74-106); POTASSIUM 5.4 mmol/L (3.5-5.1); SODIUM SERUM 136 mmol/L (136-145); UREA NITROGEN, BLOOD 10 mg/dL (7-18)
[2023-12-01] MEDS: IV NS 0.9% 1,000 ML BAG IV ONE (20:39)
[2023-12-01 20:46] LABS: NT-PRO BNP 660 pg/mL (0-125)
[2023-12-01 20:50] LABS: BASOPHILS % (AUTO) 0.3 % (0.0-2.0); EOSINOPHILS # (AUTO) 0.3 K/uL (0.0-0.7); EOSINOPHILS % (AUTO) 2.7 % (0.0-6.0); HEMATOCRIT 39 % (33-45); HEMOGLOBIN 12.7 g/dL (11.5-14.8); LYMPHOCYTES % (AUTO) 18.6 % (20.0-44.0); MEAN CORPUSCULAR HEMOGLOBIN 30 PG (26.0-33.0); MEAN CORPUSCULAR HGB CONC 32 g/dl (31.0-36.0); MEAN CORPUSCULAR VOLUME 93 fL (82-100); MONOCYTES # (AUTO) 0.7 K/uL (0.1-1.30); MONOCYTES % (AUTO) 6.7 % (2.0-12.0); NEUTROPHILS # (AUTO) 7.8 K/uL (1.8-8.9); NEUTROPHILS % (AUTO) 71.7 % (43.0-81.0); PLATELET COUNT (AUTO) 227 K/uL (150-450); RED BLOOD CELL COUNT(AUTO) 4.21 MIL/uL (4.0-5.2); RED CELL DISTRIBUTION WIDTH 14.2 % (11.5-15.0); WHITE BLOOD COUNT (AUTO) 10.9 K/uL (4.3-11.0)
[2023-12-01 20:59] VITALS: O2SAT 100
[2023-12-01] MEDS ORDERED: IV NS 0.9% 500 ML BAG IV ONE (21:30)
[2023-12-01] MEDS ORDERED: methylPREDNISolone SOD SUCC 40 MG/ML VIAL ONE (21:40)
[2023-12-01] MEDS: methylPREDNISolone SOD SUCC 40 MG/ML VIAL IV ONE (21:50)
[2023-12-01] MEDS ORDERED: FLUTICASONE PROPIONATE 16 GM BOTTLE NS PRN (22:30)
[2023-12-01] MEDS ORDERED: TIZANIDINE HCL 4 MG TABLET PO PRN (22:30)
[2023-12-01] MEDS ORDERED: TRAMADOL HCL 50 MG TABLET PO PRN (22:30)
[2023-12-01] MEDS ORDERED: ONDANSETRON HCL/PF 4 MG/2 ML VIAL IVP PRN (22:30)
[2023-12-01] MEDS: ACETAMINOPHEN 325 MG TABLET PO ONE (22:47)
[2023-12-01 22:51] VITALS: BP 139/49; TEMP 98.8; O2SAT 96
[2023-12-01] MEDS: TRAZODONE 50 MG TABLET PO SCH (23:23)
[2023-12-01] MEDS: GABAPENTIN 300 MG CAPSULE PO SCH (23:23)
[2023-12-01] MEDS: clonazePAM 1 MG TABLET PO SCH (23:23)
[2023-12-02] VITALS (14 sets, daily range): BP systolic 128–161; BP diastolic 59–76; TEMP 98.4–98.6; O2SAT 94–100
[2023-12-02] MEDS: IV NS 0.9% 1,000 ML IV PRN (01:52)
[2023-12-02] MEDS: methylPREDNISolone SOD SUCC 125 MG/2ML VIAL IV SCH (04:45)
[2023-12-02] MEDS ORDERED: IPRATROPIUM NEB FS 0.5 MG/2.5 ML AMPUL.NEB NEB PRN (06:00)
[2023-12-02] MEDS ORDERED: ALBUTEROL HALF STRENGTH 1.25 MG/3 ML VIAL.NEB NEB PRN (06:00)
[2023-12-02] MEDS ORDERED: LEVALBUTEROL HCL NEB 1.25 MG/0.5 ML VIAL.NEB NEB PRN (06:00)
[2023-12-02 07:20] LABS: BASOPHILS % (AUTO) 0.1 % (0.0-2.0); HEMATOCRIT 36 % (33-45); LYMPHOCYTES # (AUTO) 0.5 K/uL (0.8-4.8); LYMPHOCYTES % (AUTO) 5.6 % (20.0-44.0); MEAN CORPUSCULAR HEMOGLOBIN 31 PG (26.0-33.0); MEAN CORPUSCULAR HGB CONC 33 g/dl (31.0-36.0); MEAN CORPUSCULAR VOLUME 92 fL (82-100); MONOCYTES # (AUTO) 0.2 K/uL (0.1-1.30); MONOCYTES % (AUTO) 2.2 % (2.0-12.0); NEUTROPHILS # (AUTO) 8.8 K/uL (1.8-8.9); NEUTROPHILS % (AUTO) 92.1 % (43.0-81.0); PLATELET COUNT (AUTO) 245 K/uL (150-450); RED BLOOD CELL COUNT(AUTO) 3.91 MIL/uL (4.0-5.2); RED CELL DISTRIBUTION WIDTH 13.9 % (11.5-15.0); WHITE BLOOD COUNT (AUTO) 9.5 K/uL (4.3-11.0)
[2023-12-02] MEDS ORDERED: ALBUTEROL HALF STRENGTH 1.25 MG/3 ML VIAL.NEB NEB SCH (07:35)
[2023-12-02] MEDS: IPRATROPIUM NEB FS 0.5 MG/2.5 ML AMPUL.NEB NEB SCH (07:38)
[2023-12-02] MEDS: LEVALBUTEROL HCL NEB 1.25 MG/0.5 ML VIAL.NEB NEB SCH (07:38)
[2023-12-02 07:59] LABS: CALCIUM, SERUM 8.6 mg/dL (8.5-10.1); CREATININE 0.9 mg/dL (0.6-1.3); MAGNESIUM 1.8 mg/dL (1.8-2.4); PHOSPHORUS 2.4 mg/dL (2.5-4.9); POTASSIUM 3.9 mmol/L (3.5-5.1)
[2023-12-02] MEDS ORDERED: CLON0.2T PO (08:35)
[2023-12-02] MEDS: ERGOCALCIFEROL (VITAMIN D 2) 50,000 UNIT CAPSULE PO SCH (09:00)
[2023-12-02] MEDS: PREGABALIN 25 MG CAPSULE PO SCH (09:00)
[2023-12-02] MEDS: AMLODIPINE BESYLATE 5 MG TABLET PO SCH (09:00)
[2023-12-02] MEDS ORDERED: CYCLOBENZAPRINE 10 MG TABLET PO SCH (09:00)
[2023-12-02] MEDS: DULOXETINE HCL 30 MG CAPSULE.DR PO SCH (09:00)
[2023-12-02] MEDS: LETROZOLE 2.5 MG TABLET PO SCH (09:00)
[2023-12-02] MEDS: METHOCARBAMOL (750MG) 750 MG TABLET PO SCH (09:00)
[2023-12-02] MEDS: LEVOFLOXACIN (250MG) 250 MG TABLET PO ONE (09:52)
[2023-12-02] MEDS: ENOXAPARIN SODIUM 40 MG/0.4 ML DISP.SYRIN SQ SCH (09:53)
[2023-12-02] MEDS: GABAPENTIN 300 MG CAPSULE PO SCH ×2 (11:50→21:04)
[2023-12-02] MEDS: CLONIDINE HCL 0.1 MG TABLET PO SCH (12:50)
[2023-12-02] MEDS: NEUTRA PHOS 1 POWD.PACKET PO ONE (16:37)
[2023-12-02] MEDS: TRAMADOL HCL 50 MG TABLET PO PRN (16:42)
[2023-12-03] VITALS (12 sets, daily range): BP systolic 115–174; BP diastolic 61–82; TEMP 96–98.8; O2SAT 96–100
[2023-12-03] MEDS: LEVOFLOXACIN (250MG) 250 MG TABLET PO SCH (12:44)
[2023-12-04] VITALS (17 sets, daily range): BP systolic 147–160; BP diastolic 45–77; TEMP 97.9–98.4; O2SAT 94–100
[2023-12-04] MEDS: methylPREDNISolone SOD SUCC 125 MG/2ML VIAL IV SCH (09:30)
[2023-12-04] MEDS: ACETAMINOPHEN 325 MG TABLET PO PRN (20:51)
[2023-12-05] VITALS (17 sets, daily range): BP systolic 131–158; BP diastolic 52–150; TEMP 97.3–98.2; O2SAT 92–100
[2023-12-05 08:18] LABS: CALCIUM, SERUM 8.9 mg/dL (8.5-10.1); CREATININE 0.8 mg/dL (0.6-1.3)
[2023-12-06] VITALS (16 sets, daily range): BP systolic 128–174; BP diastolic 50–73; TEMP 97.1–98.2; O2SAT 94–100
[2023-12-06] MEDS: CLONIDINE HCL 0.1 MG TABLET PO SCH (09:05)
[2023-12-07] VITALS (15 sets, daily range): BP systolic 107–167; BP diastolic 44–73; TEMP 97.5–97.9; O2SAT 0–100
[2023-12-07] MEDS: methylPREDNISolone SOD SUCC 125 MG/2ML VIAL IV SCH ×2 (08:33→11:00)
[2023-12-08] VITALS (19 sets, daily range): BP systolic 102–157; BP diastolic 47–86; TEMP 97.8–98.7; O2SAT 93–98
[2023-12-09] MEDS ORDERED: MENTHOL/CETYLPYRD (CEPACOL) 1 LOZ LOZENGE PO PRN (03:00)
[2023-12-09 03:54] VITALS: O2SAT 95
[2023-12-09 04:05] VITALS: O2SAT 98
[2023-12-09 07:41] VITALS: O2SAT 95
[2023-12-09 08:00] VITALS: BP 131/50; TEMP 97.7; O2SAT 98
[2023-12-09 08:04] VITALS: BP 131/55
[2023-12-09] MEDS: predniSONE 20 MG TABLET PO SCH (08:04)
[2023-12-09] MEDS ORDERED: METH4TAB3 PO (08:53)
[2023-12-09] MEDS ORDERED: ALBU8.5H8 IH (08:53)
[2023-12-09] MEDS ORDERED: FLUT1DIS IH (08:53)
[2023-12-09] MEDS ORDERED: predniSONE 10 MG TABLET PO SCH (09:00)
== END 2023-12-09 10:15 | disposition home or self-care (01) | DRG 202 ==
LOC: ER 19:47 → TELE 22:40 → MED 12-08 09:20
PROVIDERS: ADMIT Nurse Practitioner Acute Care; ATTEND Nurse Practitioner Acute Care
DX: J45.901 Unspecified asthma with (acute) exacerbation (principal); J96.21 Acute and chronic respiratory failure with hypoxia; E78.5 Hyperlipidemia, unspecified; E87.5 Hyperkalemia; Z20.822 Contact with and (suspected) exposure to COVID-19; Z85.3 Personal history of malignant neoplasm of breast; I10 Essential (primary) hypertension; Z79.811 Long term (current) use of aromatase inhibitors; Z86.73 Personal history of transient ischemic attack (TIA), and cerebral infarction without residual deficits; M06.9 Rheumatoid arthritis, unspecified; Z88.0 Allergy status to penicillin; Z79.51 Long term (current) use of inhaled steroids; Z79.899 Other long term (current) drug therapy; Z72.0 Tobacco use; S80.812A Abrasion, left lower leg, initial encounter; X58.XXXA Exposure to other specified factors, initial encounter; Y92.9 Unspecified place or not applicable; B34.8 Other viral infections of unspecified site
CPT/HCPCS: 36415; 70220-TC; 71045-TC; 80048-TC; 83735-TC; 83880; 84100-TC; 84484-TC; 85025-TC; 94799-TC; 97110-TC; 97116-TC; A4223; A6403; G0378; J1650; J2920; J2930; J7030

== ENCOUNTER 2024-03-04 11:22 | Inpatient (IN) | payer BC, MEDICARE ==
[~2024-03-04] VITALS: Ht 154.9 cm; Wt 46.3 kg
[~2024-03-04 11:22] MED LIST changes: +ALBU8.5H8 IH; -AMLO-212 PO; +CLON0.2T PO; -CYCL15CA PO; -DOXE6TAB3 PO; -DULO60CA45 PO; -ERGO500014 PO; -FLUT16SP16 NS; +FLUT1DIS IH; -LETR2.5T PO; -MELO5CAP PO; -METH-406 PO; +METH4TAB3 PO; -Nystatin PO; -ONDA8TAB9 PO; -PREG150C PO; -TIZA4TAB5 PO; -TRAZ-182 PO
[2024-03-04] MEDS ORDERED: methylPREDNISolone SOD SUCC 125 MG/2ML VIAL ONE (12:55)
[2024-03-04 13:13] LABS: BASOPHILS % (AUTO) 0.2 % (0.0-2.0); EOSINOPHILS # (AUTO) 0.1 K/uL (0.0-0.7); EOSINOPHILS % (AUTO) 0.7 % (0.0-6.0); HEMATOCRIT 40 % (33-45); HEMOGLOBIN 12.5 g/dL (11.5-14.8); LYMPHOCYTES # (AUTO) 0.9 K/uL (0.8-4.8); LYMPHOCYTES % (AUTO) 7.4 % (20.0-44.0); MEAN CORPUSCULAR HEMOGLOBIN 29 PG (26.0-33.0); MEAN CORPUSCULAR HGB CONC 32 g/dl (31.0-36.0); MEAN CORPUSCULAR VOLUME 91 fL (82-100); MONOCYTES # (AUTO) 0.8 K/uL (0.1-1.30); MONOCYTES % (AUTO) 6.4 % (2.0-12.0); NEUTROPHILS # (AUTO) 10.7 K/uL (1.8-8.9); NEUTROPHILS % (AUTO) 85.3 % (43.0-81.0); PLATELET COUNT (AUTO) 314 K/uL (150-450); RED BLOOD CELL COUNT(AUTO) 4.37 MIL/uL (4.0-5.2); RED CELL DISTRIBUTION WIDTH 14.8 % (11.5-15.0); WHITE BLOOD COUNT (AUTO) 12.5 K/uL (4.3-11.0)
[2024-03-04] MEDS: methylPREDNISolone SOD SUCC 125 MG/2ML VIAL IV ONE (13:15)
[2024-03-04 13:21] LABS: CARBON DIOXIDE 25 mmol/L (21-32); CHLORIDE 101 mmol/L (98-107); CREATININE 1.6 mg/dL (0.6-1.3); GLUCOSE 97 mg/dL (74-106); POTASSIUM 4.3 mmol/L (3.5-5.1); SODIUM SERUM 135 mmol/L (136-145); UREA NITROGEN, BLOOD 43 mg/dL (7-18)
[2024-03-04 13:26] LABS: ALANINE AMINOTRANSFERASE 37 U/L (12-78); ALBUMIN 2.8 g/dL (3.4-5.0); ALKALINE PHOSPHATASE 89 U/L (46-116); ASPARTATE AMINOTRANSFERASE 37 U/L (15-37); BILIRUBIN,DIRECT 0.1 mg/dL (0.0-0.2); BILIRUBIN,TOTAL 0.2 mg/dL (0.2-1.0); CALCIUM, SERUM 8.8 mg/dL (8.5-10.1); TOTAL PROTEIN, SERUM 7.7 g/dL (6.4-8.2)
[2024-03-04] MEDS ORDERED: ALBUTEROL FS 2.5 MG/3 ML VIAL.NEB ONE (13:28)
[2024-03-04] MEDS ORDERED: IPRATROPIUM NEB FS 0.5 MG/2.5 ML AMPUL.NEB ONE (13:29)
[2024-03-04] MEDS: ALBUTEROL FS 2.5 MG/3 ML VIAL.NEB CONTNEB ONE (13:35)
[2024-03-04] MEDS: IPRATROPIUM NEB FS 0.5 MG/2.5 ML AMPUL.NEB NEB ONE (13:35)
[2024-03-04 13:36] VITALS: O2SAT 96
[2024-03-04 14:21] VITALS: O2SAT 100
[2024-03-04 16:00] VITALS: BP 106/65; TEMP 97.5; O2SAT 100
[2024-03-04] MEDS ORDERED: MAG HYDROX/AL HYDROX/SIMETH 30 ML UDC PO PRN (16:00)
[2024-03-04] MEDS ORDERED: MAGNESIUM HYDROXIDE 30 ML UDC PO PRN (16:00)
[2024-03-04] MEDS ORDERED: ONDANSETRON HCL/PF 4 MG/2 ML VIAL IVP PRN (16:00)
[2024-03-04] MEDS ORDERED: ALBUTEROL FS 2.5 MG/0.5 ML VIAL.NEB NEB PRN (16:00)
[2024-03-04] MEDS: CLONIDINE HCL 0.1 MG TABLET PO SCH (17:00)
[2024-03-04] MEDS: FLUTICASONE/VILANTEROL 1 EACH BLST.W.DEV IH SCH (17:42)
[2024-03-04] MEDS: GABAPENTIN 400 MG CAPSULE PO SCH (17:43)
[2024-03-04] MEDS: clonazePAM 1 MG TABLET PO SCH (17:43)
[2024-03-04] MEDS: methylPREDNISolone SOD SUCC 40 MG/ML VIAL IV SCH (17:55)
[2024-03-04 20:00] VITALS: BP 149/79; TEMP 98; O2SAT 98
[2024-03-04] MEDS: TRAMADOL HCL 50 MG TABLET PO SCH (20:10)
[2024-03-04] MEDS: ENOXAPARIN SODIUM 40 MG/0.4 ML DISP.SYRIN SQ SCH (20:15)
[2024-03-05] VITALS (8 sets, daily range): BP systolic 107–200; BP diastolic 56–96; TEMP 97.9–98.6; O2SAT 95–100
[2024-03-05] MEDS: ACETAMINOPHEN 325 MG TABLET PO PRN (00:37)
[2024-03-05 07:29] LABS: BASOPHILS % (AUTO) 0.1 % (0.0-2.0); HEMATOCRIT 37 % (33-45); LYMPHOCYTES # (AUTO) 0.6 K/uL (0.8-4.8); LYMPHOCYTES % (AUTO) 4.7 % (20.0-44.0); MEAN CORPUSCULAR HEMOGLOBIN 29 PG (26.0-33.0); MEAN CORPUSCULAR HGB CONC 33 g/dl (31.0-36.0); MEAN CORPUSCULAR VOLUME 90 fL (82-100); MONOCYTES # (AUTO) 0.3 K/uL (0.1-1.30); MONOCYTES % (AUTO) 2.7 % (2.0-12.0); NEUTROPHILS # (AUTO) 11.2 K/uL (1.8-8.9); NEUTROPHILS % (AUTO) 92.5 % (43.0-81.0); PLATELET COUNT (AUTO) 346 K/uL (150-450); RED BLOOD CELL COUNT(AUTO) 4.08 MIL/uL (4.0-5.2); RED CELL DISTRIBUTION WIDTH 14.9 % (11.5-15.0); WHITE BLOOD COUNT (AUTO) 12.1 K/uL (4.3-11.0)
[2024-03-05 08:01] LABS: CALCIUM, SERUM 8.7 mg/dL (8.5-10.1); CREATININE 1.2 mg/dL (0.6-1.3); MAGNESIUM 2.4 mg/dL (1.8-2.4); PHOSPHORUS 1.8 mg/dL (2.5-4.9); POTASSIUM 3.7 mmol/L (3.5-5.1)
[2024-03-05] MEDS: K PHOS NEUTRAL 250 MG TABLET PO ONE (10:57)
[2024-03-05] MEDS: LEVOFLOXACIN (250MG) 250 MG TABLET PO SCH (13:56)
[2024-03-05 15:47] LABS: CREATININE, URINE 54.6 MG/DL (30.0-125.0); URINE TOTAL PROTEIN 81.6 mg/dL (0-11.9)
[2024-03-05 15:48] LABS: APPEARANCE,URINE SLIGHTLY CLOUDY (CLEAR); BILIRUBIN,URINE NEGATIVE (NEGATIVE); BLOOD, URINE 1+ Ery/uL (NEGATIVE); COLOR,URINE YELLOW (YELLOW); KETONES,URINE NEGATIVE (NEGATIVE); LEUKOCYTE ESTERASE ,URINE 2+ (NEGATIVE); NITRITE, URINE POSITIVE (NEGATIVE); PROTEIN,URINE 1+ mg/dl (NEGATIVE); UGLUCOSE TRACE mg/dL (NEGATIVE); UROBILINOGEN,URINE 0.2 EU/dL (0.2)
[2024-03-05 16:03] LABS: ADD URINE CULTURE YES; BACTERIA,URINE 4+ /HPF (None Seen); EOSINOPHIL,URINE None Seen; SQUAMOUS EPITHELIAL CELL,UR Few /HPF (None Seen); WBC,URINE TOO NUMEROUS TO COUN /HPF (0-3)
[2024-03-05] MEDS: IV NS 0.9% 1,000 ML BAG IV PRN (16:41)
[2024-03-05] MEDS: IV NS 0.9% 1,000 ML IV SCH (17:37)
[2024-03-05] MEDS: IPRATROPIUM NEB FS 0.5 MG/2.5 ML AMPUL.NEB NEB SCH (20:15)
[2024-03-05] MEDS: ALBUTEROL HALF STRENGTH 1.25 MG/3 ML VIAL.NEB NEB SCH (20:15)
[2024-03-06] VITALS: BP 124/72; TEMP 97.6; O2SAT 98
[2024-03-06 06:00] VITALS: BP 132/82; TEMP 97.8; O2SAT 96
[2024-03-06 06:40] LABS: HEMATOCRIT 35 % (33-45); HEMOGLOBIN 11.3 g/dL (11.5-14.8); LYMPHOCYTES % (AUTO) 5.5 % (20.0-44.0); MEAN CORPUSCULAR HEMOGLOBIN 29 PG (26.0-33.0); MEAN CORPUSCULAR HGB CONC 32 g/dl (31.0-36.0); MEAN CORPUSCULAR VOLUME 91 fL (82-100); MONOCYTES # (AUTO) 0.5 K/uL (0.1-1.30); MONOCYTES % (AUTO) 2.6 % (2.0-12.0); NEUTROPHILS # (AUTO) 17.1 K/uL (1.8-8.9); NEUTROPHILS % (AUTO) 91.9 % (43.0-81.0); PLATELET COUNT (AUTO) 335 K/uL (150-450); RED BLOOD CELL COUNT(AUTO) 3.85 MIL/uL (4.0-5.2); RED CELL DISTRIBUTION WIDTH 14.9 % (11.5-15.0); WHITE BLOOD COUNT (AUTO) 18.6 K/uL (4.3-11.0)
[2024-03-06 06:56] LABS: CREATININE 0.9 mg/dL (0.6-1.3); PHOSPHORUS 2.9 mg/dL (2.5-4.9); POTASSIUM 4.4 mmol/L (3.5-5.1)
[2024-03-06 07:37] VITALS: O2SAT 96
[2024-03-06 07:55] VITALS: O2SAT 99
[2024-03-06 08:00] VITALS: BP 175/143; TEMP 97.5; O2SAT 96
[2024-03-06 08:06] VITALS: BP 175/143
[2024-03-06] MEDS ORDERED: PRED20TA PO (09:28)
[2024-03-06] MEDS ORDERED: LEVO500T90 PO (09:28)
== END 2024-03-06 11:30 | disposition home or self-care (01) | DRG 190 ==
LOC: ER 11:24 → TELE1 15:40
PROVIDERS: ADMIT Internal Medicine; ATTEND Internal Medicine
DX: J44.1 Chronic obstructive pulmonary disease with (acute) exacerbation (principal); J96.21 Acute and chronic respiratory failure with hypoxia; E87.1 Hypo-osmolality and hyponatremia; N17.9 Acute kidney failure, unspecified; E78.5 Hyperlipidemia, unspecified; M19.90 Unspecified osteoarthritis, unspecified site; Z85.3 Personal history of malignant neoplasm of breast; I10 Essential (primary) hypertension; Z88.7 Allergy status to serum and vaccine; Z91.041 Radiographic dye allergy status; Z79.51 Long term (current) use of inhaled steroids; Z79.899 Other long term (current) drug therapy; Z90.12 Acquired absence of left breast and nipple; G62.9 Polyneuropathy, unspecified; F17.200 Nicotine dependence, unspecified, uncomplicated; F41.9 Anxiety disorder, unspecified; M89.8X9 Other specified disorders of bone, unspecified site
CPT/HCPCS: 36415; 71045-TC; 80048-TC; 80076-TC; 81001; 82570-TC; 83735-TC; 84100-TC; 84300-TC; 84484-TC; 85025-TC; 87086-TC; 94799-TC; G0378; J1650; J2920; J2930; J3490; J7030

== ENCOUNTER 2024-12-12 22:05 | Inpatient (IN) | payer BC, MEDICARE ==
[~2024-12-12] VITALS: Ht 154.9 cm; Wt 44.5 kg
[~2024-12-12 22:05] MED LIST changes: +LEVO500T90 PO; -METH4TAB3 PO; +PRED20TA PO
[2024-12-12] MEDS: KETOROLAC TROMETHAMINE 15 MG/ML VIAL IV ONE (23:00)
[2024-12-12] MEDS ORDERED: ACETAMINOPHEN ES 500 MG TABLET ONE (23:14)
[2024-12-12] MEDS ORDERED: KETOROLAC TROMETHAMINE 15 MG/ML VIAL ONE (23:14)
[2024-12-12] MEDS: IPRATROPIUM NEB FS 0.5 MG/2.5 ML AMPUL.NEB NEB ONE (23:18)
[2024-12-12] MEDS: ALBUTEROL FS 2.5 MG/0.5 ML VIAL.NEB NEB ONE (23:18)
[2024-12-12] MEDS ORDERED: IPRATROPIUM NEB FS 0.5 MG/2.5 ML AMPUL.NEB ONE (23:19)
[2024-12-12] MEDS ORDERED: ALBUTEROL FS 2.5 MG/0.5 ML VIAL.NEB ONE (23:19)
[2024-12-12 23:20] LABS: BASOPHILS # (AUTO) 0.1 K/uL (0.0-0.2); BASOPHILS % (AUTO) 0.6 % (0.0-2.0); EOSINOPHILS # (AUTO) 0.5 K/uL (0.0-0.7); EOSINOPHILS % (AUTO) 5.8 % (0.0-6.0); HEMATOCRIT 47 % (33-45); HEMOGLOBIN 15.4 g/dL (11.5-14.8); LYMPHOCYTES # (AUTO) 2.3 K/uL (0.8-4.8); LYMPHOCYTES % (AUTO) 24.6 % (20.0-44.0); MEAN CORPUSCULAR HEMOGLOBIN 29 PG (26.0-33.0); MEAN CORPUSCULAR HGB CONC 32 g/dl (31.0-36.0); MEAN CORPUSCULAR VOLUME 91 fL (82-100); MONOCYTES # (AUTO) 0.6 K/uL (0.1-1.30); MONOCYTES % (AUTO) 6.1 % (2.0-12.0); NEUTROPHILS % (AUTO) 62.9 % (43.0-81.0); PLATELET COUNT (AUTO) 276 K/uL (150-450); RED BLOOD CELL COUNT(AUTO) 5.23 MIL/uL (4.0-5.2); RED CELL DISTRIBUTION WIDTH 15.5 % (11.5-15.0); WHITE BLOOD COUNT (AUTO) 9.5 K/uL (4.3-11.0)
[2024-12-12] MEDS: ACETAMINOPHEN ES 500 MG TABLET PO ONE (23:25)
[2024-12-12] MEDS: IV NS 0.9% 1,000 ML BAG IV ONE (23:25)
[2024-12-12 23:28] VITALS: O2SAT 92
[2024-12-12 23:34] LABS: CALCIUM, SERUM 9.1 mg/dL (8.5-10.1); CARBON DIOXIDE 29 mmol/L (21-32); CHLORIDE 104 mmol/L (98-107); CREATININE 1.2 mg/dL (0.6-1.3); GLUCOSE 96 mg/dL (74-106); POTASSIUM 4.8 mmol/L (3.5-5.1); SODIUM SERUM 139 mmol/L (136-145); UREA NITROGEN, BLOOD 19 mg/dL (7-18)
[2024-12-12 23:40] LABS: ALANINE AMINOTRANSFERASE 18 U/L (12-78); ALBUMIN 3.6 g/dL (3.4-5.0); ALKALINE PHOSPHATASE 86 U/L (46-116); ASPARTATE AMINOTRANSFERASE 25 U/L (15-37); BILIRUBIN,DIRECT 0.1 mg/dL (0.0-0.2); BILIRUBIN,TOTAL 0.3 mg/dL (0.2-1.0); TOTAL PROTEIN, SERUM 7.5 g/dL (6.4-8.2)
[2024-12-12 23:43] VITALS: O2SAT 100
[2024-12-13] MEDS ORDERED: MORPHINE SULFATE INJ 4 MG/ML DISP.SYRIN ONE (00:53)
[2024-12-13] MEDS: NITROGLYCERIN 0.4 MG/TAB BOTTLE SL ONE (00:56)
[2024-12-13] MEDS: MORPHINE SULFATE INJ 2 MG/ML DISP.SYRIN IV ONE (00:56)
[2024-12-13] MEDS ORDERED: ALBUTEROL FS 2.5 MG/3 ML VIAL.NEB NEB PRN (01:30)
[2024-12-13] MEDS ORDERED: methylPREDNISolone SOD SUCC 40 MG/ML VIAL ONE (05:17)
[2024-12-13] MEDS: methylPREDNISolone SOD SUCC 40 MG/ML VIAL IV SCH (05:20)
[2024-12-13] MEDS ORDERED: HEPARIN INFUSION/D5W 500 ML IV ONE (06:19)
[2024-12-13] MEDS ORDERED: HEPARIN SODIUM, PORCINE 5000 UNITS/1 ML VIAL ONE (06:20)
[2024-12-13] MEDS: HEPARIN INFUSION/D5W 500 ML IV PRN (06:30)
[2024-12-13] MEDS: MORPHINE SULFATE INJ 2 MG/ML DISP.SYRIN IV PRN (09:18)
[2024-12-13] MEDS: FLUTICASONE/VILANTEROL 1 EACH BLST.W.DEV IH SCH (09:32)
[2024-12-13] MEDS: clonazePAM 1 MG TABLET PO SCH (09:33)
[2024-12-13] MEDS: ACETAMINOPHEN 325 MG TABLET PO PRN (10:43)
[2024-12-13 12:00] VITALS: BP 190/105; TEMP 97.8; O2SAT 98
[2024-12-13] MEDS: NITROGLYCERIN 0.4 MG/TAB BOTTLE SL PRN (12:59)
[2024-12-13] MEDS: GABAPENTIN 300 MG CAPSULE PO SCH (13:00)
[2024-12-13] MEDS: ASPIRIN EC 325 MG TABLET.DR PO SCH (13:42)
[2024-12-13] MEDS: ATORVASTATIN 40 MG TABLET PO SCH (13:43)
[2024-12-13] MEDS: LOSARTAN POTASSIUM 25 MG TABLET PO SCH (13:43)
[2024-12-13] MEDS: METOPROLOL TARTRATE 25 MG TABLET PO SCH (13:53)
[2024-12-13] MEDS: ONDANSETRON HCL/PF 4 MG/2 ML VIAL IVP PRN (15:29)
[2024-12-13 16:00] VITALS: BP 175/80; TEMP 97.3; O2SAT 98
[2024-12-13] MEDS: predniSONE 20 MG TABLET PO SCH (18:17)
[2024-12-13 20:00] VITALS: BP 181/72; TEMP 97.5; O2SAT 98
[2024-12-14] VITALS (7 sets, daily range): BP systolic 102–159; BP diastolic 64–103; TEMP 97.7–98.2; O2SAT 95–98
[2024-12-14] MEDS: predniSONE 20 MG TABLET PO SCH ×2 (03:00→07:28)
[2024-12-14 08:33] LABS: BASOPHILS % (AUTO) 0.3 % (0.0-2.0); HEMATOCRIT 53 % (33-45); HEMOGLOBIN 16.8 g/dL (11.5-14.8); LYMPHOCYTES # (AUTO) 1.6 K/uL (0.8-4.8); LYMPHOCYTES % (AUTO) 13.4 % (20.0-44.0); MEAN CORPUSCULAR HEMOGLOBIN 29 PG (26.0-33.0); MEAN CORPUSCULAR HGB CONC 32 g/dl (31.0-36.0); MEAN CORPUSCULAR VOLUME 91 fL (82-100); MONOCYTES # (AUTO) 0.8 K/uL (0.1-1.30); MONOCYTES % (AUTO) 6.3 % (2.0-12.0); NEUTROPHILS # (AUTO) 9.7 K/uL (1.8-8.9); PLATELET COUNT (AUTO) 279 K/uL (150-450); RED BLOOD CELL COUNT(AUTO) 5.82 MIL/uL (4.0-5.2); RED CELL DISTRIBUTION WIDTH 15.2 % (11.5-15.0); WHITE BLOOD COUNT (AUTO) 12.1 K/uL (4.3-11.0)
[2024-12-14 08:50] LABS: ALBUMIN 3.5 g/dL (3.4-5.0); BILIRUBIN,TOTAL 0.4 mg/dL (0.2-1.0); CALCIUM, SERUM 9.2 mg/dL (8.5-10.1); MAGNESIUM 1.9 mg/dL (1.8-2.4); PHOSPHORUS 4.2 mg/dL (2.5-4.9); POTASSIUM 4.9 mmol/L (3.5-5.1); TOTAL PROTEIN, SERUM 8.1 g/dL (6.4-8.2)
[2024-12-14 09:05] LABS: INR 1.08 (0.91-1.10); PROTHROMBIN TIME 11.4 SECS (9.2-11.1)
[2024-12-14] MEDS ORDERED: ALBUTEROL FS 2.5 MG/3 ML VIAL.NEB NEB PRN (12:00)
[2024-12-15] VITALS: BP 154/62; TEMP 98.2; O2SAT 100
[2024-12-15 04:00] VITALS: BP 136/60; TEMP 98.4; O2SAT 100
[2024-12-15 08:00] VITALS: BP 167/78; TEMP 98.4; O2SAT 95
[2024-12-15 08:34] LABS: BASOPHILS % (AUTO) 0.1 % (0.0-2.0); HEMATOCRIT 53 % (33-45); LYMPHOCYTES # (AUTO) 0.8 K/uL (0.8-4.8); LYMPHOCYTES % (AUTO) 4.3 % (20.0-44.0); MEAN CORPUSCULAR HEMOGLOBIN 29 PG (26.0-33.0); MEAN CORPUSCULAR HGB CONC 32 g/dl (31.0-36.0); MEAN CORPUSCULAR VOLUME 92 fL (82-100); MONOCYTES # (AUTO) 0.7 K/uL (0.1-1.30); MONOCYTES % (AUTO) 3.6 % (2.0-12.0); NEUTROPHILS # (AUTO) 16.8 K/uL (1.8-8.9); PLATELET COUNT (AUTO) 296 K/uL (150-450); RED BLOOD CELL COUNT(AUTO) 5.78 MIL/uL (4.0-5.2); RED CELL DISTRIBUTION WIDTH 15.7 % (11.5-15.0); WHITE BLOOD COUNT (AUTO) 18.3 K/uL (4.3-11.0)
[2024-12-15 08:49] LABS: ALBUMIN 3.4 g/dL (3.4-5.0); BILIRUBIN,TOTAL 0.3 mg/dL (0.2-1.0); CALCIUM, SERUM 8.8 mg/dL (8.5-10.1); MAGNESIUM 2.2 mg/dL (1.8-2.4); PHOSPHORUS 3.9 mg/dL (2.5-4.9); POTASSIUM 4.5 mmol/L (3.5-5.1)
[2024-12-15 09:40] LABS: CREATININE 1.2 mg/dL (0.6-1.3)
[2024-12-15] MEDS: HEPARIN SODIUM, PORCINE 5000 UNITS/1 ML VIAL IV ONE (10:09)
[2024-12-15 12:00] VITALS: BP 157/70; TEMP 97.5; O2SAT 94
[2024-12-15] MEDS: METOCLOPRAMIDE HCL 10 MG TABLET PO PRN (13:55)
[2024-12-15 16:13] VITALS: BP 158/73; TEMP 97.5; O2SAT 94
[2024-12-15 20:00] VITALS: BP 148/77; TEMP 97.5; O2SAT 90
[2024-12-16] VITALS (8 sets, daily range): BP systolic 133–178; BP diastolic 57–80; TEMP 97.5–98.4; O2SAT 95–100
[2024-12-16] MEDS: hydrALAZINE HCL IV 20 MG VIAL IV PRN (00:42)
[2024-12-16 07:34] LABS: BASOPHILS # (AUTO) 0.1 K/uL (0.0-0.2); BASOPHILS % (AUTO) 0.4 % (0.0-2.0); CALCIUM, SERUM 8.9 mg/dL (8.5-10.1); CREATININE 0.9 mg/dL (0.6-1.3); HEMATOCRIT 45 % (33-45); HEMOGLOBIN 14.9 g/dL (11.5-14.8); LYMPHOCYTES # (AUTO) 2.1 K/uL (0.8-4.8); MEAN CORPUSCULAR HEMOGLOBIN 30 PG (26.0-33.0); MEAN CORPUSCULAR HGB CONC 34 g/dl (31.0-36.0); MEAN CORPUSCULAR VOLUME 90 fL (82-100); MONOCYTES # (AUTO) 0.8 K/uL (0.1-1.30); MONOCYTES % (AUTO) 5.6 % (2.0-12.0); NEUTROPHILS # (AUTO) 12.2 K/uL (1.8-8.9); PLATELET COUNT (AUTO) 235 K/uL (150-450); RED BLOOD CELL COUNT(AUTO) 4.95 MIL/uL (4.0-5.2); RED CELL DISTRIBUTION WIDTH 15.2 % (11.5-15.0); WHITE BLOOD COUNT (AUTO) 15.3 K/uL (4.3-11.0)
[2024-12-16 07:44] LABS: INR 1.04 (0.91-1.10)
[2024-12-16] MEDS: methylPREDNISolone SOD SUCC 125 MG/2ML VIAL IV ONE ×2 (08:30→12:05)
[2024-12-16] MEDS: diphenhydrAMINE HCL 50 MG/ML VIAL IV ONE (13:04)
[2024-12-16] MEDS: methylPREDNISolone SOD SUCC 40 MG/ML VIAL IV ONE (13:17)
[2024-12-16] MEDS ORDERED: IV NS 0.9% 500 ML IV ONE (13:18)
[2024-12-16] MEDS ORDERED: IV SET PRIMARY PUMP SET 1 EA INFUS.SET MC ONE (13:18)
[2024-12-16] MEDS ORDERED: IODIXANOL 150 ML IV ONE (13:19)
[2024-12-16] MEDS ORDERED: LIDOCAINE HCL/MPF 1% 30 ML VIAL IJ ONE (13:19)
[2024-12-16] MEDS ORDERED: methylPREDNISolone SOD SUCC 125 MG/2ML VIAL IV ONE (13:30)
[2024-12-16] MEDS ORDERED: FENTANYL PF 100MCG/2ML AMPUL ONE (13:41)
[2024-12-16] MEDS ORDERED: MIDAZOLAM HCL 2 MG/2ML VIAL ONE (13:41)
[2024-12-17] VITALS: BP 119/59; TEMP 97.7; O2SAT 95
[2024-12-17 04:00] VITALS: BP 152/80; TEMP 97.7; O2SAT 95
[2024-12-17 08:00] VITALS: BP 157/60; TEMP 97.7; O2SAT 100
[2024-12-17] MEDS ORDERED: METO25TA20 PO (08:40)
[2024-12-17 12:00] VITALS: BP 157/66; TEMP 98.2; O2SAT 97
== END 2024-12-17 13:55 | disposition home or self-care (01) | DRG 205 ==
LOC: ER 22:14 → TELE-TD 12-13 01:05 → TELE1 12-15 10:09 → ICU 12-16 14:25 → TELE1 12-16 17:40
PROVIDERS: ATTEND Internal Medicine
PROC: 4A023N7 Measurement of Cardiac Sampling and Pressure, Left Heart, Percutaneous Approach (ICD-10-PCS; principal; 2024-12-16)
PROC: B211YZZ Fluoroscopy of Multiple Coronary Arteries using Other Contrast (ICD-10-PCS; 2024-12-16)
PROC: B410YZZ Fluoroscopy of Abdominal Aorta using Other Contrast (ICD-10-PCS; 2024-12-16)
PROC: B44LZZZ Ultrasonography of Femoral Artery (ICD-10-PCS; 2024-12-16)
DX: M94.0 Chondrocostal junction syndrome [Tietze] (principal); I21.A1 Myocardial infarction type 2; J44.1 Chronic obstructive pulmonary disease with (acute) exacerbation; E78.5 Hyperlipidemia, unspecified; M19.90 Unspecified osteoarthritis, unspecified site; G89.4 Chronic pain syndrome; F41.9 Anxiety disorder, unspecified; Z85.3 Personal history of malignant neoplasm of breast; D75.1 Secondary polycythemia; F17.200 Nicotine dependence, unspecified, uncomplicated; I10 Essential (primary) hypertension; I25.10 Atherosclerotic heart disease of native coronary artery without angina pectoris; Z98.890 Other specified postprocedural states; Z91.041 Radiographic dye allergy status; Z88.7 Allergy status to serum and vaccine; Z79.51 Long term (current) use of inhaled steroids; Z79.899 Other long term (current) drug therapy
CPT/HCPCS: 36415; 71045-TC; 80048-TC; 80053-TC; 80076-TC; 83735-TC; 84100-TC; 84484-TC; 85025-TC; 85610-TC; 85730-TC; 86850-TC; 93307-TC; A4223; G0378; J0360; J1200; J1644; J1885; J2250; J2270; J2405; J2919; J3010; J3490; J7030; J7040; J8597; Q9967